=== PATIENT | female | born 1965 | race Caucasian/White ===

== ENCOUNTER 2016-06-30 09:30 | Emergency (ER) ==
[2016-06-30] MEDS ORDERED: ZOFRAN ODT PO ONE (09:51)
[2016-06-30] MEDS ORDERED: NORCO-7.5 PO ONE (09:51)
[2016-06-30] MEDS ORDERED: MORPHINE IM ONE (09:55)
[2016-06-30] MEDS ORDERED: ZOFRAN IM ONE (09:55)
[2016-06-30] MEDS ORDERED: NORFLEX IM ONE (11:02)
[2016-06-30 11:14] VITALS: BP 118/66
--- NOTE | 2016-06-30 11:21 | PROVIDER DOCUMENTATION ---
HPI-Musculoskeletal Pain/Inj - GENERAL Source: patient - HX OF PRESENT ILLNESS-MUSKULOSKELTAL Quality of Pain: reports: dull Severity in ED: moderate <Luis Antonio Clark - Last Filed: 06/30/16 11:15> <Lico Unger - Last Filed: 06/30/16 11:46> - GENERAL Chief Complaint: Hip Pain Stated Complaint: FALL/LFT HIP PAIN Time Seen by Provider: 06/30/16 09:45 Review of Systems - Adult - REVIEW OF SYSTEMS - ADULT Constitutional: denies: chills, fever Eyes: reports: no symptoms reported Ears, Nose, Mouth & Throat: reports: no symptoms reported Cardiovascular: denies: chest pain, palpitations, syncope Respiratory: denies: cough, dyspnea on exertion, shortness of breath, wheezing Gastrointestinal: denies: abdominal pain, diarrhea, nausea, vomiting Genitourinary: reports: dysuria. denies: frequency, hematuria Musculoskeletal: reports: joint pain. denies: back pain, neck pain Integumentary: reports: no symptoms reported Neurological: reports: no symptoms reported Psychiatric: reports: no symptoms reported Endocrine: reports: no symptoms reported Hematologic/Lymphatic: reports: no symptoms reported Allergic/Immunologic: reports: no symptoms reported All Other Systems: Reviewed and Negative <Luis Antonio Clark - Last Filed: 06/30/16 11:15> Past History - Adult - PAST MEDICAL HISTORY-ADULT Review of Records: reports: Old Records Reviewed, Nursing Assessment Review, Medications Reviewed Cardiovascular: reports: murmur Musculoskeletal: reports: osteoporosis Endocrine/Immune: reports: anemia - PRIOR SURGERIES/PROCEDURES Surgical/Procedure History: reports: joint replacement (left hip) - IMMUNIZATION STATUS Childhood Immunizations: See Nurse Assessment Flu Vaccine: See Nurse Assessment - FAMILY HISTORY Family History: reviewed, not pertinent - SOCIAL HISTORY Smoking: quit greater than 1 year, cigarettes Living Situation: family <Luis Antonio Clark - Last Filed: 06/30/16 11:15> Physical Exam-Injury Related - Physical Exam-Injury Related Initial Vital Signs Reviewed: Yes General Appearance: alert, no apparent distress Eyes: PERRL/EOMI, pink conjunctivae Head, Ears, Nose, Mouth & Throat: normocephalic/atraumatic, moist mucous membranes, normal ENT inspection Neck: non-tender, full range of motion, normal inspection Respiratory: lungs clear, normal breath sounds, no respiratory distress, no accessory muscle use Cardiovascular: regular rate, rhythm, no edema, no murmur Abdominal Exam: normal bowel sounds, non tender, soft Back Exam: no CVA tenderness, no vertebral tenderness Extremity: no calf tenderness, normal capillary refill, pelvis stable, tenderness (left hip) Integumentary: normal color, warm/dry Neurologic: physical therapist clinic director II-XII nml as tested, no motor/sensory deficits Psych/Mental Status: normal mood/affect, normal thought content, normal thought process, oriented x 3 - Glascow Coma Score Best Eye Response (Ware): (4) open spontaneously Best Verbal Response (Ware): (5) oriented Best Motor Response (Ware): (6) obeys commands Ware Total: 15 <Luis Antonio Clark - Last Filed: 06/30/16 11:15> Progress <Luis Antonio Clark - Last Filed: 06/30/16 11:15> <Lico Unger - Last Filed: 06/30/16 11:46> - PLAN OF CARE/RESULTS Progress/Plan/Lab Results: Laboratory Tests 06/30/16 10:28 Urine Source CLEAN CATCH Urine Color YELLOW Urine Turbidity HAZY Urine pH 5.0 Ur Specific Cades 1.005 Urine Protein NEGATIVE Ur Glucose (Stick) NEGATIVE Ur Ketones (Stick) NEGATIVE Urine Blood NEGATIVE Urine Nitrite NEGATIVE Urine Bilirubin NEGATIVE Urobilinogen Dipstick NORMAL Urine Leukocytes LARGE A Urine WBC (Auto) 10-20 A Urine RBC (Auto) <10 U Epithel Cells (Auto) <10 Urine Bacteria (Auto) 2+ Orders Category Date Time Status ED: Urine Bedside ORDERED Care 06/30/16 10:25 Active XRAY PELVIS W/HIP 2-3VW LT [RAD] Stat Exams 06/30/16 09:51 Completed URINALYSIS W/POSS RFLX CULT [URINALYSIS] Stat Lab 06/30/16 10:28 Completed Hydrocodone/APAP 7.5 mg/325 mg [[place]-7.5] Med 06/30/16 09:51 Discontinued 1 each PO NOW ONE Morphine Med 06/30/16 09:55 Discontinued 4 mg IM NOW ONE Ondansetron Odt [Zofran Odt] Med 06/30/16 09:51 Discontinued 4 mg PO NOW ONE Ondansetron [Zofran] Med 06/30/16 09:55 Discontinued 4 mg IM NOW ONE Orphenadrine [Norflex] Med 06/30/16 11:02 Discontinued 60 mg IM NOW ONE Vital Signs Temp Pulse Resp BP Pulse Ox 06/30/16 11:11 98 H 18 118/66 100 06/30/16 09:33 98.2 F 125 H 22 142/80 100 Penicillins Allergy (Verified 06/30/16 09:42) ANAPHYLAXIS Ferrous Gluconate [Iron] 480 mg PO DAILY 06/30/16 Furosemide [Lasix] 20 mg PO BID 06/30/16 Gabapentin 400 mg PO DAILY 06/30/16 I&O 06/29/16 06/30/16 07/01/16 06:59 06:59 06:59 Output Total 40 Balance -40 Laboratory 06/30/16 10:28 Urine Source CLEAN CATCH Urine Color YELLOW Urine Turbidity HAZY Urine pH 5.0 Ur Specific Cades 1.005 Urine Protein NEGATIVE Ur Glucose (Stick) NEGATIVE Ur Ketones (Stick) NEGATIVE Urine Blood NEGATIVE Urine Nitrite NEGATIVE Urine Bilirubin NEGATIVE Urobilinogen Dipstick NORMAL Urine Leukocytes LARGE A Urine WBC (Auto) 10-20 A Urine RBC (Auto) <10 U Epithel Cells (Auto) <10 Urine Bacteria (Auto) 2+ (Lico Unger) Departure <Luis Antonio Clark - Last Filed: 06/30/16 11:15> - Departure Time of Disposition Order: 11:44 Certified Medical Emergency: Emergent <Lico Unger - Last Filed: 06/30/16 11:46> - Departure DIAGNOSIS: Hip strain Qualifiers: Encounter type: initial encounter Laterality: left Qualified Code(s): S76.012A - Strain of muscle, fascia and tendon of left hip, initial encounter UTI (urinary tract infection) Qualifiers: Urinary tract infection type: acute cystitis Hematuria presence: without hematuria Qualified Code(s): N30.00 - Acute cystitis without hematuria Disposition: HOME 01 Condition: Good Additional Instructions: Take medication as prescribed. Follow up with your primary care provider or orthopedist. ED Follow Up Instructions: You have been treated by a care provider in the Emergency Department. These instructions are being provided to you so you can have an understanding of how to care for yourself upon discharge. Upon discharge from the Emergency Department, you are responsible for making arrangements for follow-up care by a physician of your choice. Take all prescribed medications as directed. Return to the Emergency Department immediately for any new or worsening symptoms. You may call the Physician Referral phone number at [phone] to obtain a list of Physicians who are taking new patients. Prescriptions: Cyclobenzaprine [Flexeril] 10 mg PO TID #20 tablet Meloxicam [Mobic] 7.5 mg PO DAILY PRN PRN #15 tablet PRN Reason: Pain Referrals: DEBORAH ZENDEJAS [Primary Care Provider] - Jeanine Crocker MD [STAFF PHYSICIAN] - Attestation - Scribe Verification/Attestation Scribe:: Luis Antonio Clark Acting as Scribe for:: Lico Unger Scribe documention review:: This chart was documented by a scribe and accurately reflects the service the provider performed and the decisions made by the provider. - Physician/ DAMIÁN Attestation Patient care was provided by Advanced Practice Provider:: Yes Advanced Practice Provider:: Lico Unger Advanced Practice Provider documentation review:: The Mid-level provider documentation, treatment plan and medical decision making was reviewed by the physician who agrees with all treatment and medical decision making by the MLP. <Luis Antonio Clark - Last Filed: 06/30/16 11:15> - Physician/ DAMIÁN Attestation Patient care was provided by Advanced Practice Provider:: Yes Advanced Practice Provider:: Lico Unger Advanced Practice Provider documentation review:: The Mid-level provider documentation, treatment plan and medical decision making was reviewed by the physician who agrees with all treatment and medical decision making by the MLP. <Lico Unger - Last Filed: 06/30/16 11:46> Physician Attestation - Physician Attestation I, the provider, attest to the following statement:: Lico Unger Physician documentation Attestation:: This documentation recorded by the scribe accurately reflects the service I personally performed and the decisions made by me. <Luis Antonio Clark - Last Filed: 06/30/16 11:15>
[2016-06-30 11:25] LABS: URINE MICRO REVIEW NEEDED? NO; URINE SOURCE CLEAN CATCH
--- NOTE | 2016-06-30 11:34 | Diag Imaging Result Document ---
PROCEDURE NAME: XRAY PELVIS W/HIP 2-3VW LT - 06/30/2016 AP PELVIS AND LEFT HIP, 2 VIEWS: FINDINGS: There is a total hip prosthesis on the right. There is no evidence of acute fracture or dislocation. There are no previous studies. There is a moderately large amount of stool in the rectosigmoid colon. There are postsurgical changes in the lateral right iliac bone. IMPRESSION: No acute bony disease.
[2016-06-30 11:36] LABS: BILIRUBIN URINE NEGATIVE (NEGATIVE); BLOOD URINE NEGATIVE (NEGATIVE); COLOR YELLOW; GLUCOSE URINE NEGATIVE (NEGATIVE); LEUKOCYTES URINE LARGE (NEGATIVE); NITRITE URINE NEGATIVE (NEGATIVE); PROTEIN URINE NEGATIVE (NEGATIVE); SP GRAVITY URINE 1.005; TURBIDITY URINE HAZY (CLEAR); UROBILINOGEN URINE NORMAL (NORMAL)
[2016-06-30 11:37] LABS: UR EPITHELIAL CELLS <10 /HPF (<10); URINE BACTERIA 2+ /HPF; URINE CULTURE NEEDED? YES; URINE RBC <10 /HPF (<10)
== END 2016-06-30 11:55 | disposition home or self-care (01) ==
LOC: ED 09:30
DX: S76.012A Strain of muscle, fascia and tendon of left hip, initial encounter (principal); N30.00 Acute cystitis without hematuria; M25.552 Pain in left hip; R30.0 Dysuria; M81.0 Age-related osteoporosis without current pathological fracture; D64.9 Anemia, unspecified; Z79.899 Other long term (current) drug therapy; Z96.642 Presence of left artificial hip joint; Z87.891 Personal history of nicotine dependence; W01.0XXA Fall on same level from slipping, tripping and stumbling without subsequent striking against object, initial encounter
CPT/HCPCS: 81001; 81025; 87088; 96372; J2270; J2360; J2405